=== PATIENT | male | born 1955 | race Asian ===

== ENCOUNTER 2024-03-14 17:46 | Emergency (ER) | payer OTHER ==
[~2024-03-14] VITALS: Ht 170.2 cm; Wt 63.5 kg
[2024-03-14 17:47] VITALS: BP 181/94; PULSE 104; RESP 16; TEMP 98.2; O2SAT 98
[2024-03-14 18:23] VITALS: BP 164/88; PULSE 96; RESP 16; TEMP 98.2; O2SAT 98
== END 2024-03-14 18:23 | disposition home or self-care (01) ==
LOC: MED 17:46
DX: Z02.89 Encounter for other administrative examinations (principal); V89.2XXA Person injured in unspecified motor-vehicle accident, traffic, initial encounter; Y93.89 Activity, other specified; Y92.410 Unspecified street and highway as the place of occurrence of the external cause; Y99.8 Other external cause status
CPT/HCPCS: 99283